=== PATIENT | female | born 1945 | race African-American/Black ===

== ENCOUNTER 2023-04-23 12:13 | Observation (INO) | payer SELFPAY ==
[2023-04-23] MEDS ORDERED: SODIUM CHLORIDE 1,000 ML IV SCH (12:30)
[2023-04-23 12:37] VITALS: BMI 26.6
[2023-04-23] MEDS ORDERED: ACETAMINOPHEN 1000 MG/100 ML BAG IVPB ONE (13:00)
[2023-04-23] MEDS ORDERED: LIDOCAINE 5% TOPICAL PATCH TP ONE (13:00)
[2023-04-23] MEDS ORDERED: ACETAMINOPHEN INJECTION 100 ML IVPB ONE (13:13)
[2023-04-23] MEDS ORDERED: LIDOCAINE 4% PATCH TP ONE (13:14)
[2023-04-23] MEDS ORDERED: TETRACAINE 0.5% OPHTH SOLN 2 ML BOTTLE ONE (13:17)
[2023-04-23] MEDS ORDERED: TETRACAINE 0.5% OPHTH SOLN 2 ML BOTTLE OU ONE (13:18)
[2023-04-23 14:02] LABS: BASO % 0.4 % (0-2.0); EOS % 0.5 % (0-4.5); HEMATOCRIT 38.6 % (32.4-45.2); HEMOGLOBIN 13.1 GM/dL (10.7-15.3); LYMPH % 39.9 % (8-40); MCH 29.2 pg (25.7-33.7); MCHC 33.8 g/dl (32.0-36.0); MEAN CELL VOLUME 86.4 fl (80-96); MEAN PLT VOLUME 10.9 fl (7.5-11.1); MONO % 5.1 % (3.8-10.2); NEUT % 54.1 % (42.8-82.8); PLATELET COUNT 204 10^3/uL (134-434); RBC 4.46 M/mm3 (3.60-5.2); RDW 14.6 % (11.6-15.6); WHITE BLOOD COUNT 7.5 K/mm3 (4.0-10.0)
[2023-04-23 14:13] LABS: INR 1.1 (0.83-1.09); PROTHROMBIN TIME (PATIENT) 12.8 SEC (9.7-13.0)
[2023-04-23 14:15] LABS: ACTIVATED PTT 35.5 SECONDS (25.2-36.5)
[2023-04-23] MEDS ORDERED: amLODIPine BESYLATE 5 MG TABLET (FP) PO ONE (14:24)
[2023-04-23 14:38] LABS: POTASSIUM 3.8 mmol/L (3.5-5.1)
[2023-04-23 14:41] LABS: CALCIUM 9.2 mg/dL (8.5-10.1)
[2023-04-23 14:42] LABS: BLOOD UREA NITROGEN 13.4 mg/dL (7-18)
[2023-04-23 14:44] LABS: CREATININE 1.2 mg/dL (0.55-1.3)
[2023-04-23 14:47] LABS: BILIRUBIN,TOTAL 0.7 mg/dL (0.2-1)
[2023-04-23 15:35] LABS: EPI CELLS 6 /uL (0-25.1); HYALINE CASTS 0 /uL (0-3.1); PH,URINE 7.5 (5.0-8.0); URINE APPEARANCE CLEAR; URINE BACTERIA 371 /uL (0-1359); URINE BILIRUBIN NEGATIVE (NEGATIVE); URINE COLOR YELLOW; URINE GLUCOSE (UA) NEGATIVE (NEGATIVE); URINE KETONE NEGATIVE (NEGATIVE); URINE LEUK ESTERASE NEGATIVE (NEGATIVE); URINE NITRITE NEGATIVE (NEGATIVE); URINE PROTEIN NEGATIVE (NEGATIVE); URINE RBC 251 /uL (0-23.9); URINE UROBILINOGEN 0.2 mg/dL (0.2-1.0); URINE WBC 6 /uL (0-25.8)
[2023-04-23] MEDS ORDERED: ACETAMINOPHEN 500 MG TABLET (FP) PO PRN (17:32)
[2023-04-23] MEDS ORDERED: ASPIRIN COATED 81 MG TABLET.EC ONE (17:59)
[2023-04-23] MEDS ORDERED: LISINOPRIL 20 MG TABLET ONE (17:59)
[2023-04-23] MEDS: LISINOPRIL 20 MG TABLET PO SCH (18:02)
[2023-04-23] MEDS: ASPIRIN COATED 81 MG TABLET.EC PO SCH (18:02)
[2023-04-23 21:41] VITALS: RESP 18
[2023-04-23] MEDS ORDERED: LIDOCAINE PATCH REMOVAL MC ONE (22:00)
[2023-04-23] MEDS ORDERED: ATORVASTATIN CA 40 MG TABLET (FP) PO SCH (22:00)
[2023-04-23] MEDS ORDERED: ATORVASTATIN CA 40 MG TABLET (FP) ONE (22:21)
[2023-04-24] MEDS ORDERED: amLODIPine BESYLATE 5 MG TABLET (FP) PO SCH (10:00)
[2023-04-24] MEDS ORDERED: amLODIPine BESYLATE 10 MG TABLET (FP) PO SCH (10:00)
[2023-04-24] MEDS ORDERED: amLODIPine BESYLATE 5 MG TABLET (FP) ONE (10:35)
[2023-04-24] MEDS: ASPIRIN COATED 81 MG TABLET.EC PO SCH (10:37)
[2023-04-24] MEDS: LISINOPRIL 20 MG TABLET PO SCH (10:37)
[2023-04-24 10:57] VITALS: BP 124/74; PULSE 69; TEMP 98
== END 2023-04-24 13:10 | disposition home or self-care (01) ==
LOC: JER 12:13 → JERBED 19:15
PROVIDERS: ADMIT Internal Medicine; ATTEND Internal Medicine
PROC: 3E033NZ Introduction of Analgesics, Hypnotics, Sedatives into Peripheral Vein, Percutaneous Approach (ICD-10-PCS; principal; 2023-04-23)
PROC: 3E033GC Introduction of Other Therapeutic Substance into Peripheral Vein, Percutaneous Approach (ICD-10-PCS; 2023-04-23)
DX: I16.0 Hypertensive urgency (principal); I10 Essential (primary) hypertension; J44.9 Chronic obstructive pulmonary disease, unspecified; H40.9 Unspecified glaucoma; R29.810 Facial weakness; M62.838 Other muscle spasm; H40.059 Ocular hypertension, unspecified eye; Z86.73 Personal history of transient ischemic attack (TIA), and cerebral infarction without residual deficits
CPT/HCPCS: 36415; 70450-TC; 70551-TC; 71045-TC-FY; 80053; 80061; 81003; 82550; 82962; 83036; 84484; 85025; 85610; 85730; 93005; 93010; 99285-25; G0378

== ENCOUNTER 2023-10-27 12:05 | Emergency (ER) | payer OTHER ==
[2023-10-27 12:15] VITALS: RESP 18; TEMP 98.1; BMI 27.3
[2023-10-27 13:23] LABS: VENOUS BASE EXCESS -0.4 mmol/L (-2-2); VENOUS O2 SATURATION 33.8 % (70-80); VENOUS PCO2 51.8 mmHg (38-52); VENOUS PH 7.325 (7.310-7.410)
[2023-10-27 13:26] LABS: BASO % 0.6 % (0-2.0); EOS % 0.4 % (0-4.5); HEMATOCRIT 39.7 % (32.4-45.2); HEMOGLOBIN 13.7 GM/dL (10.7-15.3); LYMPH % 31.7 % (8-40); MCH 30.3 pg (25.7-33.7); MCHC 34.6 g/dl (32.0-36.0); MEAN CELL VOLUME 87.7 fl (80-96); MEAN PLT VOLUME 10.3 fl (7.5-11.1); MONO % 5.5 % (3.8-10.2); NEUT % 61.8 % (42.8-82.8); PLATELET COUNT 198 10^3/uL (134-434); RBC 4.53 M/mm3 (3.60-5.2); RDW 13.7 % (11.6-15.6); WHITE BLOOD COUNT 9.2 K/mm3 (4.0-10.0)
[2023-10-27 13:45] LABS: EPI CELLS 6 /uL (0-25.1); HYALINE CASTS 0 /uL (0-3.1); PH,URINE 8.5 (5.0-8.0); URINE APPEARANCE CLEAR; URINE BACTERIA 600 /uL (0-1359); URINE BILIRUBIN NEGATIVE (NEGATIVE); URINE COLOR YELLOW; URINE GLUCOSE (UA) NEGATIVE (NEGATIVE); URINE KETONE NEGATIVE (NEGATIVE); URINE LEUK ESTERASE NEGATIVE (NEGATIVE); URINE NITRITE NEGATIVE (NEGATIVE); URINE PROTEIN NEGATIVE (NEGATIVE); URINE RBC 67 /uL (0-23.9); URINE UROBILINOGEN 0.2 mg/dL (0.2-1.0); URINE WBC 6 /uL (0-25.8)
[2023-10-27 13:46] LABS: POTASSIUM 4.8 mmol/L (3.5-5.1)
[2023-10-27 13:49] LABS: ALBUMIN 3.8 g/dl (3.4-5.0); BLOOD UREA NITROGEN 8.7 mg/dL (7-18); CALCIUM 9.5 mg/dL (8.5-10.1); MAGNESIUM 2.1 mg/dL (1.8-2.4)
[2023-10-27 13:52] LABS: CREATININE 0.9 mg/dL (0.55-1.3)
[2023-10-27 13:54] LABS: BILIRUBIN,TOTAL 0.7 mg/dL (0.2-1); TOT PROT 7.3 g/dl (6.4-8.2)
[2023-10-27 14:04] LABS: INR 1.05 (0.83-1.09); PROTHROMBIN TIME (PATIENT) 11.9 SEC (9.7-13.0)
[2023-10-27 17:09] VITALS: BP 132/72; PULSE 64
== END 2023-10-27 19:16 | disposition home or self-care (01) ==
LOC: JER 12:05
DX: R51.9 Headache, unspecified (principal); M54.2 Cervicalgia; R50.9 Fever, unspecified; R10.9 Unspecified abdominal pain; N39.0 Urinary tract infection, site not specified; I10 Essential (primary) hypertension; Z91.199 Patient's noncompliance with other medical treatment and regimen due to unspecified reason; Z20.822 Contact with and (suspected) exposure to COVID-19
CPT/HCPCS: 0241U-QW; 36415; 70450-TC; 71045-TC-FY; 72125-TC; 74176-TC; 80053; 81003; 82803; 83690; 83735; 84484; 85025; 85610; 85730; 87086; 93005; 93010; 99285-25